=== PATIENT | female | born 1960 | race Caucasian/White ===

== ENCOUNTER 2023-05-25 07:10 | Day surgery (SDC) | payer OTHER ==
[~2023-05-25] VITALS: Ht 157.5 cm; Wt 110.0 kg
[~2023-05-25 07:10] MED LIST: BISOPROLOL-HCT1 EACH PO; BUPROPION XL150 MG PO; COQ-10100 MG PO; CRANBERRY-PROB1 EACH PO; FLUOXETINE HCL20 MG PO; LEVOTHYROXINE137 MC1 PO; LEVOTHYROXINE150 MCG PO; LIOTHYRONINE SO5 MCG PO; MELOXICAM15 MG PO; MULTI VITAMIN1 EACH PO; NORCO 5-325 TA1 EACH PO; RED YEAST RICE600 M1 PO; SIMVASTATIN40 MG PO; TURMERIC500 M3 PO; VITAMIN C1000 MG PO; VITAMIN D325 MCG PO; ZINC30 MG PO
[2023-05-25 07:26] VITALS: BP 130/90
--- NOTE | 2023-05-25 09:06 | NUR ---
05/25/23 0906 Fabienne Rea OXYGEN SATURATION 99% ON 4L VIA NC. OXYGEN REDUCED TO 2L VIA NC.
[2023-05-25 09:31] VITALS: BP 104/61
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
--- NOTE | 2023-05-25 12:55 | NUR ---
PT IN BED. GENERALLY IN GOOD SPIRITS. PRAYED.
--- NOTE | 2023-05-29 18:59 | PATH ---
[facility] [address] [place], [place] [address] Signed SPECIMEN(S): A DESCENDING/LEFT COLON POLYP AT 70 CM SPECIMEN SOURCE: A. DESCENDING/LEFT COLON POLYP AT 70 CM CLINICAL HISTORY: Colonoscopy. Initial screening and family history of colon polyps/cancer FINAL PATHOLOGIC DIAGNOSIS: Descending/left colon, polyp at 70 cm, biopsy: - Hyperplastic polyp. - Negative for dysplasia and malignancy. SDL MICROSCOPIC EXAMINATION: Histologic sections of all submitted blocks are examined by light microscopy. These findings, together with the gross examination, support the pathologic diagnosis. SDL GROSS DESCRIPTION: The specimen, labeled and designated "Mixon, descending/left colon polyp at 70 cm," is received in formalin and consists of one cooper soft tissue fragment, 0.2 cm. Entirely submitted in (A1). VB (under the direct supervision of a pathologist) The Gross Description was prepared using a voice recognition system. The report was reviewed for accuracy; however, sound-alike word errors, addition and/or deletions may occur. If there is any question about this report, please contact Client Services. PERFORMING LABORATORY: Technical component was performed by [facility], [address] [place] [id number] (CLIA# [id number]). Professional interpretation was performed by [facility] - [facility], [address] [place] [phone] (CLIA#: [id number]). Diagnostician: Jo Ann Odell MD Pathologist Electronically Signed 05/29/2023 PATIENT NAME: PAULA MIXON PATHOLOGY DATE OF : 62 REPORT #: [id number] PHYSICIAN: DENISE CARNEY PCP: SATHYA AREVALO REPORT IS CONFIDENTIAL AND NOT TO BE RELEASED WITHOUT AUTHORIZATION [address] [address] Signed Copies: ~ PATIENT NAME: PAULA MIXON PATHOLOGY DATE OF : 62 REPORT #: [id number] PHYSICIAN: DENISE CARNEY PCP: STAHYA AREVALO REPORT IS CONFIDENTIAL AND NOT TO BE RELEASED WITHOUT AUTHORIZATION
== END 2023-05-25 09:40 | disposition home or self-care (01) ==
LOC: DS 07:10 → OPS 07:10 → DS 09:00 → OPS 09:00
PROVIDERS: ATTEND Colon & Rectal Surgery
PROC: 0DBM8ZZ Excision of Descending Colon, Via Natural or Artificial Opening Endoscopic (ICD-10-PCS; principal; 2023-05-25 08:15)
DX: Z12.11 Encounter for screening for malignant neoplasm of colon (principal); K57.30 Diverticulosis of large intestine without perforation or abscess without bleeding; K63.5 Polyp of colon; I10 Essential (primary) hypertension; E78.2 Mixed hyperlipidemia; E03.9 Hypothyroidism, unspecified; M19.90 Unspecified osteoarthritis, unspecified site; E66.9 Obesity, unspecified; Z68.41 Body mass index [BMI] 40.0-44.9, adult; Z79.890 Hormone replacement therapy; Z79.899 Other long term (current) drug therapy
CPT/HCPCS: 99153; G0500; J2250; J3010; J7121